=== PATIENT | female | born 1975 | race American Indian/Alaskan Native ===

== ENCOUNTER 2017-08-04 18:01 | Emergency (ER) | payer OTHER ==
[2017-08-04 18:34] VITALS: BP 150/100
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
== END 2017-08-05 00:40 | disposition home or self-care (01) ==
LOC: ED 18:01
DX: M54.5 Low back pain (principal); M25.511 Pain in right shoulder; M25.512 Pain in left shoulder; V43.52XA Car driver injured in collision with other type car in traffic accident, initial encounter; Y93.89 Activity, other specified; Y99.8 Other external cause status; Y92.410 Unspecified street and highway as the place of occurrence of the external cause
CPT/HCPCS: 99282